=== PATIENT | female | born 1985 | race Caucasian/White ===

== ENCOUNTER 2016-06-11 17:35 | Emergency (ER) | payer OTHER ==
[~2016-06-11] VITALS: Wt 81.6 kg
[~2016-06-11 17:35] MED LIST: BACTRIM DS 8001 TA1 PO; CLARITIN10 MG PO; FLONASE ALLERG9.9 ML NAS; PREDNISONE10 MG PO; ROBITUSSIN AC 110 ML PO; TRAMADOL HCL50 MG PO; VITAMIN D350000 UNIT PO; VITAMINS FOR HA1 CAP PO; ZYRTEC-D 5 MG-11 TE1 PO; ZYRTEC10 M2 PO
[2016-06-11] MEDS ORDERED: ANAPROX DS550 MG PO (18:15)
== END 2016-06-11 18:28 | disposition home or self-care (01) ==
LOC: ED 17:35
DX: G56.01 Carpal tunnel syndrome, right upper limb (principal); Z98.51 Tubal ligation status; Z88.0 Allergy status to penicillin; Z91.040 Latex allergy status

== ENCOUNTER 2016-08-27 12:32 | Emergency (ER) | payer OTHER ==
[~2016-08-27 12:32] MED LIST changes: +ANAPROX DS550 MG PO
[2016-08-27] MEDS ORDERED: ZITHROMAX250 MG PO (13:31)
== END 2016-08-27 13:37 | disposition home or self-care (01) ==
LOC: ED 12:32
DX: J02.9 Acute pharyngitis, unspecified (principal); G56.01 Carpal tunnel syndrome, right upper limb; Z98.51 Tubal ligation status; Z95.5 Presence of coronary angioplasty implant and graft; Z79.899 Other long term (current) drug therapy; Z88.0 Allergy status to penicillin; Z91.040 Latex allergy status

== ENCOUNTER 2017-02-28 23:43 | Emergency (ER) | payer SELFPAY ==
[~2017-02-28] VITALS: Ht 165.1 cm; Wt 71.7 kg
[~2017-02-28 23:43] MED LIST changes: +ZITHROMAX250 MG PO
[2017-03-01] MEDS ORDERED: ANAPROX DS550 MG PO (01:01)
== END 2017-03-01 02:19 | disposition home or self-care (01) ==
LOC: ED 23:43
DX: S93.401A Sprain of unspecified ligament of right ankle, initial encounter (principal); Z88.0 Allergy status to penicillin; Z91.040 Latex allergy status; Z79.899 Other long term (current) drug therapy; W10.9XXA Fall (on) (from) unspecified stairs and steps, initial encounter; Y93.89 Activity, other specified; Y92.89 Other specified places as the place of occurrence of the external cause; Y99.8 Other external cause status

== ENCOUNTER 2017-06-22 17:40 | Emergency (ER) | payer OTHER ==
[~2017-06-22] VITALS: Ht 165.1 cm; Wt 66.2 kg
[2017-06-22] MEDS ORDERED: PROBIOTIC 5 BI1 EACH PO (18:05)
[2017-06-22] MEDS ORDERED: CLINDAMYCIN150 MG PO (18:12)
== END 2017-06-22 18:30 | disposition home or self-care (01) ==
LOC: ED 17:40
DX: S01.81XA Laceration without foreign body of other part of head, initial encounter (principal); R03.0 Elevated blood-pressure reading, without diagnosis of hypertension; Z88.0 Allergy status to penicillin; Z91.040 Latex allergy status; Z79.899 Other long term (current) drug therapy; W22.8XXA Striking against or struck by other objects, initial encounter; Y93.89 Activity, other specified; Y92.810 Car as the place of occurrence of the external cause; Y99.8 Other external cause status

== ENCOUNTER 2022-10-06 16:08 | Emergency (ER) | payer OTHER ==
[~2022-10-06] VITALS: Ht 165.1 cm; Wt 69.9 kg
[~2022-10-06 16:08] MED LIST changes: +CLINDAMYCIN150 MG PO; +PROBIOTIC 5 BI1 EACH PO
[2022-10-06 17:20] LABS: BASO % 0.3 % (0.0-1.0); EOS # 0.2 10*3/uL (0.0-0.4); HEMATOCRIT 36.8 % (37.0-47.0); LYMPH # 2.2 10*3/uL (1.3-4.4); MEAN CELL VOLUME 88.9 fl (81.0-99.0); MEAN CORPUSCULAR HGB CONC 33.7 g/dl (33.0-37.0); MEAN PLATELET VOLUME 9.9 fl (9.6-12.3); MONO # 0.4 10*3/uL (0.1-1.0); MONO % 6.9 % (3.0-9.0); NEUT # 3.5 10*3/uL (2.3-7.9); NEUT % 54.6 % (47.0-73.0); PLATELET COUNT AUTOMATED 210 10*3/uL (130-400); RED BLOOD COUNT 4.14 10*6/uL (4.10-5.10); WHITE BLOOD COUNT 6.4 10*3/uL (4.8-10.8)
[2022-10-06 17:31] LABS: ACT PARTIAL THROMBO TIME 28.8 SECONDS (20.0-32.1)
[2022-10-06 17:38] LABS: ALKALINE PHOSPHATASE 51 U/L (46-116); BETA-HCG, QUANT < 3.0 mIU/mL (0-10); BUN 15 mg/dl (9-23); CHLORIDE 104 mmol/L (98-107); POTASSIUM 3.6 mmol/L (3.4-5.1); SGPT/ALT 17 U/L (10-49); TOTAL PROTEIN 6.8 gm/dL (6.0-8.0)
== END 2022-10-06 17:49 | disposition home or self-care (01) ==
LOC: ED 16:08
PROVIDERS: Emergency Medicine
DX: M79.661 Pain in right lower leg (principal); Z91.040 Latex allergy status; Z88.0 Allergy status to penicillin; Z79.899 Other long term (current) drug therapy; Z90.89 Acquired absence of other organs; Z98.890 Other specified postprocedural states